=== PATIENT | female | born 1965 | race Caucasian/White ===

== ENCOUNTER 2016-11-18 07:43 | Emergency (ER) | payer BC, OTHER ==
--- NOTE | 2016-11-18 08:39 | UCPHY ---
H & P Time Seen by Provider: 11/18/16 08:13 Patient Type: New HPI/ROS: CC: pain to the right wrist HPI:51-year-old female took a rough fall yesterday when helping someone move. she tripped and she believes she fell backwards with her hand outstretched. Nonetheless she complains of pain on the volar aspect of the right wrist over the radial styloid. She denies any numbness tingling paresthesias. She has not heard anything else in the fall. She states it took a little while but she finally did fall sleep last night. Of note, is that she is right-handed. denies any other injury ROS: Constitutional - feeling well before the fall Head no injury or hematoma. Musculoskeletal - no other joint or muscle pain. Integument - no lacerations, though ecchymotic over the volar aspect of the wrist at the radial styloid Neurological - no headache, numbness, tingling, or paresthesias. Smoking Status: Never smoked Physical Exam: Constitutional: Well-nourished, well-developed, no acute distress. Musculoskeletal: Moves all extremities without difficulty, except that of the right wrist which range of motion is slightly decreased and runs little slow. Mild guarding. There is some mild soft tissue swelling with ecchymosis present to the volar aspect of the right wrist. There is no pain with axial loading or distraction of the right thumb however, there is some mild tenderness at the base of the thumb overlying the snuffbox. Full range of motion of the elbow Skin: No observed abrasions or lacerations. Skin is warm and dry. Normal motor and sensation. ecchymosis is noted above Psych: Normal mood and affect. Constitutional: Initial Vital Signs Temperature (C) 36.8 C 11/18/16 07:57 Heart Rate 63 11/18/16 07:57 Respiratory Rate 14 11/18/16 07:57 Blood Pressure 108/61 11/18/16 07:57 O2 Sat (%) 96 11/18/16 07:57 O2 Delivery Mode Room Air Allergies/Adverse Reactions: No Known Allergies Allergy (Verified 11/18/16 07:57) Home Medications: Medication Instructions Recorded NK [No Known Home Meds] 11/18/16 Medical Decision Making - Diagnostics Imaging: My Plain Film Review: Plain film of Right wrist, four view view series. Interpreted by radiologist. Films reviewed me. negative for fracture ED Course/Re-evaluation: splint application of a thumb spica splint by the tech. Recheck thereafter by me, normal alignment. Neurovascular status intact. Differential Diagnosis: The differential diagnosis includes but is not limited to: Fracture, Sprain, Strain, Dislocation, Nerve injury, Contusion Departure - Departure Disposition: Home, Routine, Self-Care Clinical Impression: Sprain of wrist, right Qualifiers: Encounter type: initial encounter Qualified Code(s): S63.501A - Unspecified sprain of right wrist, initial encounter Condition: Good Instructions: Wrist Sprain (ED) Additional Instructions: use Tylenol or ibuprofen, or even both for the pain. Elevate. Wear the splint until seen by Orthopedics in the next week. Call later today for appointment next week. Referrals: NONE *PRIMARY CARE P,. [Primary Care Provider] - As per Instructions Jose Otero MD [Medical Doctor] - As per Instructions - PQRS PQRS Measurement: NA
[2016-11-18 08:54] VITALS: BP 110/67; PULSE 66; RESP 16; TEMP 98.4; O2SAT 95
== END 2016-11-18 08:51 | disposition home or self-care (01) ==
LOC: CED 07:43
DX: S63.501A Unspecified sprain of right wrist, initial encounter (principal); Y93.E6 Activity, residential relocation; W19.XXXA Unspecified fall, initial encounter
CPT/HCPCS: 73110-PO; G0463-PO